=== PATIENT | female | born 1985 | race Caucasian/White ===

== ENCOUNTER 2016-10-15 17:18 | Emergency (ER) | payer OTHER ==
[2016-10-15 19:35] LABS: HEMOGLOBIN 12.2 gm/dl (12.3-15.3); RED BLOOD COUNT 4.93 M/UL (4.00-5.10); WHITE BLOOD COUNT 9.6 K/UL (4.5-11.0)
[2016-10-15 19:52] LABS: BUN/CREATININE RATIO 16 (0-10)
== END 2016-10-15 20:33 | disposition home or self-care (01) ==
LOC: ER1 17:18
PROVIDERS: Family Medicine
DX: J20.9 Acute bronchitis, unspecified (principal); R04.2 Hemoptysis; E11.9 Type 2 diabetes mellitus without complications; Z79.84 Long term (current) use of oral hypoglycemic drugs
CPT/HCPCS: 36415; 71020; 80053; 84703; 85025; 85379; 99285

== ENCOUNTER 2021-02-05 12:01 | Emergency (ER) | payer OTHER ==
[2021-02-05 13:15] LABS: HEMOGLOBIN 11.6 gm/dl (12.3-15.3); RED BLOOD COUNT 4.42 M/UL (4.00-5.10); WHITE BLOOD COUNT 7.4 K/UL (4.5-11.0)
[2021-02-05 13:36] LABS: BUN/CREATININE RATIO 9 (0-10)
[2021-02-05] MEDS ORDERED: ZOFRAN4 MG PO (15:29)
== END 2021-02-05 15:40 | disposition home or self-care (01) ==
LOC: ER1 12:01
PROVIDERS: Physician Assistant Medical
DX: R55 Syncope and collapse (principal); E87.6 Hypokalemia; E86.0 Dehydration; R11.2 Nausea with vomiting, unspecified; R51.9 Headache, unspecified; R05 Cough
CPT/HCPCS: 70450; 71045; 80053; 81001; 82550; 82553; 83874; 84484; 84703; 85025; 93005; 96374; 96376; 99284; J2405; J7030

== ENCOUNTER 2021-03-31 18:24 | Emergency (ER) | payer OTHER ==
[~2021-03-31 18:24] MED LIST: ZOFRAN4 MG PO
== END 2021-03-31 20:41 | disposition home or self-care (01) ==
LOC: ER1 18:24
DX: U07.1 COVID-19 (principal); J06.9 Acute upper respiratory infection, unspecified; J45.909 Unspecified asthma, uncomplicated; Z79.899 Other long term (current) drug therapy
CPT/HCPCS: 99283; U0002

== ENCOUNTER 2021-04-01 08:47 | Emergency (ER) | payer OTHER ==
[~2021-04-01] VITALS: Ht 165.1 cm; Wt 149.2 kg
== END 2021-04-01 12:15 | disposition home or self-care (01) ==
LOC: ER1 08:47
DX: Z23 Encounter for immunization (principal); U07.1 COVID-19
CPT/HCPCS: 99283; M0243